=== PATIENT | female | born 1950 | race Hispanic/Latino ===

== ENCOUNTER 2020-11-25 08:49 | Outpatient (CLI) | payer MEDICARE ==
[2020-11-25 10:08] LABS: Blood Urea Nitrogen 43 mg/dL (7-17)
--- NOTE | 2020-11-25 12:07 | Cat Scan Report ---
CT angio abdomen pelvis INDICATION: MAIN. TECHNIQUE: All CT scans at this location are performed using CT dose reduction for ALARA by means of automated e xposure control. 3 plane MIP and 3-D reconstructions were produced. COMPARISON: None available. FINDINGS: Detail is obscured by considerable artifact from the thoracic spine hardware. There is mild ectasia of the infrarenal abdominal aorta, maximum diameter 2.4 cm. The abdominal aorta is moderately atherosclerotic. Celiac axis, SMA, renal arteries and LEI are patent. Common iliac art eries are mildly atherosclerotic but normal in caliber. Internal and external iliac arteries are crocker nt bilaterally, as are the common femoral arteries and proximal deep and superficial femoral arteries . IMPRESSION: 1. Moderate atherosclerosis, with mild focal ectasia (2.4 cm maximum diameter) of the infrarenal abdo bruce aorta. 2. Patent aortic branches. Signer Name: Lefty Murphy MD Signed: 11/25/2020 12:03 PM Workstation Name: [id number]
== END 2020-11-25 08:50 | disposition home or self-care (01) ==
LOC: CT 08:49
PROVIDERS: ATTEND Surgery Vascular Surgery
DX: I77.811 Abdominal aortic ectasia (principal); I70.0 Atherosclerosis of aorta
CPT/HCPCS: 36415; 74174; 82565; 84520; Q9967

== ENCOUNTER 2020-12-13 09:38 | Day surgery (SDC) | payer MEDICARE ==
[2020-12-13 10:51] LABS: Hematocrit 30.8 % (30.3-42.9); Hemoglobin 10.3 gm/dl (10.1-14.3); Mean Corpuscular HGB Conc 33 % (30-34); Mean Corpuscular Volume 96 fl (79-97); Platelet Count 411 K/mm3 (140-440); Red Blood Count 3.21 M/mm3 (3.65-5.03); Red Cell Distribution Width 15.5 % (13.2-15.2)
[2020-12-13 11:00] LABS: INR 0.97 (0.87-1.13)
[2020-12-13 11:01] LABS: Partial Thromboplastin Time 30.8 Sec. (24.2-36.6)
[2020-12-13 11:05] LABS: Calcium 8.8 mg/dL (8.4-10.2)
[2020-12-13 12:38] LABS: Platelet Estimate Consistent w Auto; RBC Morphology Normal; Total Cells Counted 100
[2020-12-13] MEDS: SODIUM CHLORIDE 0.9% 500 ML 500 ML IV SCH ×2 (12:42→14:00)
[2020-12-13] MEDS ORDERED: HEPARIN 10,000 UNITS/10 ML VIAL ONE (13:46)
[2020-12-13] MEDS ORDERED: HEPARIN/NS 5000 UNIT/500ML 1,000 ML IR ONE (13:46)
[2020-12-13] MEDS ORDERED: HEPARIN/NS 5000 UNIT/500ML 500 ML IR ONE (13:47)
[2020-12-13] MEDS ORDERED: NITROGLYCERIN SYRINGE 0 ML ONE (13:47)
[2020-12-13] MEDS ORDERED: VERAPAMIL 5 MG/2 ML INJ ONE (13:47)
[2020-12-13] MEDS ORDERED: LIDOCAINE (2%) 20 MG/1 ML VIAL 20 ML MDV INFILTRATI ONE (13:48)
[2020-12-13] MEDS: fentaNYL 100 MCG/2 ML INJ ONE ×2 (14:05→14:19)
[2020-12-13] MEDS: MIDAZOLAM 2 MG/2 ML INJ ONE ×2 (14:05→14:19)
--- NOTE | 2020-12-13 15:03 | Short Stay Summary ---
Short Stay Documentation Date of service: 12/13/20 Narrative H&P: See H&P - History H&P: obtained from office - Allergies and Medications Current Medications: Allergies morphine Allergy (Verified 12/13/20 10:22) Nausea Home Medications Medication Instructions Recorded Confirmed Last Taken Type ALPRAZolam [Xanax TAB] 1 mg FEEDTUBE TID 12/13/20 12/13/20 12/12/20 History 1 mg Acetaminophen [Tylenol] 325 mg FEEDTUBE PRN 12/13/20 12/13/20 12/12/20 History 325 mg Buspirone HCl [busPIRone] 5 mg FEEDTUBE BID 12/13/20 12/13/20 12/12/20 History 5 mg Cyclobenzaprine HCl [Flexeril 5 MG 5 mg FEEDTUBE TID 12/13/20 12/13/20 12/13/20 History TAB] 5 mg Duloxetine HCl 60 mg FEEDTUBE DAILY 12/13/20 12/13/20 12/12/20 History 60 mg Folic Acid [Folvite] 1 mg FEEDTUBE DAILY 12/13/20 12/13/20 12/12/20 History 1 mg Ondansetron (Nf) [Zofran TAB] 8 mg FEEDTUBE TID 12/13/20 12/13/20 12/12/20 History 8 mg Temazepam [Restoril] 30 mg FEEDTUBE DAILY 12/13/20 12/13/20 12/12/20 History 30 mg hydrOXYzine PAMOATE [Vistaril] 25 mg FEEDTUBE QID 12/13/20 12/13/20 12/12/20 History 25 mg metHOTREXate sodium [Methotrexate] 6 tab FEEDTUBE QWEEK 12/13/20 12/13/20 12/11/20 History 6 tab predniSONE [Deltasone] 10 mg FEEDTUBE QDAY 12/13/20 12/13/20 12/12/20 History 10 mg tiZANidine [Zanaflex 4mg TAB] 4 mg FEEDTUBE QID 12/13/20 12/13/20 12/12/20 History 4 mg traZODone [Desyrel] 100 mg FEEDTUBE HS 12/13/20 12/13/20 12/12/20 History 100 mg Active Medications Sodium Chloride (Nacl 0.9% 500 Ml) 500 mls @ 50 mls/hr IV DIRECT KELLY Last Admin: 12/13/20 14:00 Dose: 50 mls/hr Documented by: - Brief post op/procedure progress note Date of procedure: 12/13/20 Pre-op diagnosis: PVD with Right Lower Extremity Ulceration and Left Foot Rest Pain Post-op diagnosis: same Procedure: 1. Ultrasound-Guided Access Right Common Femoral Artery 2. Ultrasound-Guided Access Left Common Femoral Artery 3. Angioplasty and Stent of Right Common Iliac Artery With 8 x 59 Viabahn VBX Stent Graft 4. Angioplasty and Stent of Left Common Iliac Artery With 8 x 59 Viabahn VBX Stent Graft 5. Closure of Right Femoral Arteriotomy with Pro-Astor Closure Device 6. Closure of Left Femoral Arteriotomy with Pro-Astor Closure Device 7. Radiologic Supervision with Interpretation 8. Monitored Moderate Sedation (Total Anesthesia Time: 56 Minutes) Anesthesia: local, other (Monitored Moderate Sedation) Surgeon: DANNY GOYAL Estimated blood loss: minimal Pathology: none Condition: stable - Disposition Condition at discharge: Good Short Stay Discharge Plan Activity: other (No strenuous activity for 24 hours) Wound: remove dressing (48-hour), other (After removing dressing it is okay to shower and wash the wound with soap and water but do not soak in water for 2 weeks.) Follow up with: DANNY GOYAL MD [Staff Physician] - 14 Days Prescriptions: Metoprolol [Lopressor TAB] 25 mg PO BID #60 tablet Clopidogrel [Plavix] 75 mg PO QDAY #90 tablet cilostazoL [Pletal] 100 mg PO BID #60 tablet
--- NOTE | 2020-12-13 15:15 | Operative Report ---
Operative Report Operative Report: Date of Procedure: 12/13/2020 Pre-operative Diagnosis: Peripheral Vascular Disease with Right Lower Extremity Ulcerations and Left Foot Rest Pain Post-operative Diagnosis: Same Procedure(s): 1. Ultrasound-Guided Access Right Common Femoral Artery 2. Ultrasound-Guided Access Left Common Femoral Artery 3. Angioplasty and Stent of Right Common Iliac Artery With 8 x 59 Viabahn VBX Balloon Expandable Stent Graft 4. Angioplasty and Stent of Left Common Iliac Artery With 8 x 59 Viabahn VBX Balloon Expandable Stent Graft 5. Closure of Right Femoral Arteriotomy with Pro-[place] Closure Device 6. Closure of Left Femoral Arteriotomy with Pro-[place] Closure Device 7. Radiologic Supervision with Interpretation 8. Monitored Moderate Sedation (Total Anesthesia Time: 56 Minutes) Surgeon: Nathan Lopez M.D. Carpenter Refrigerator: German Anesthesia: Monitored Moderate Sedation Total Anesthesia Time: 56 Minutes EBL: Minimal Counts: Correct Complications: None Condition: Stable Specimen: None Indication: The patient is a 70-year-old female with a history of bilateral iliac artery stenosis and ulcerations on her right toes as well as rest pain in her left foot. She is in need of angioplasty and stent of the iliac arteries. She has been given the risk, benefits, and alternative procedures and consented to the procedure. Angiographic Findings: There is approximately 50% stenosis of the right common iliac artery and approximately 75% stenosis of the left common iliac artery. After intervention bilateral common iliac arteries were patent with less than 10% residual stenosis and brisk flow of contrast throughout. Description of Procedure: The patient was brought to the Shuttle Driver and laid in supine position. After she was adequately sedated bilateral groins were prepped and draped in normal sterile fashion. Ultrasound was used to identify the right common femoral artery and confirm patency. Once patency was confirmed the overlying skin and soft tissue was anesthetized with lidocaine. An 11 blade was used to make a small stab incision and then a curved hemostat was used with ultrasound guidance to bluntly dissect down to the anterior surface of the right common femoral artery. A 21-gauge micropuncture needle was used with ultrasound guidance into the right common femoral artery and a 0.018 micropuncture wire was advanced to the artery. The needle was removed and a micropuncture sheath was placed by Seldinger technique. The wire and inner dilator was removed and the 0.035 J-w jordyn was advanced into the artery. The micropuncture sheath was removed and a 5 Indonesian sheath was placed by Seldinger technique. Ultrasound was used to identify the left common femoral artery and confirm patency. Once patency was confirmed the overlying skin and soft tissue was anesthetized with lidocaine. An 11 blade was used to make a small stab incision and a curved hemostat was used to bluntly dissect down to the anterior surface of the left common femoral artery under ultrasound guidance. A 21-gauge micropuncture needle was used ultrasound guidance into the left common femoral artery and a 0.018 micropuncture wire was advanced to the artery. The needle was removed and a micropuncture sheath was placed by Seldinger technique. The entered dilator and wire were removed and a 0.035 J-wire was advanced to the artery. The micropuncture sheath was removed and a 5 Indonesian sheath was placed by standard technique. Hand injections were performed through each sheath and multiple obliquities demonstrating the areas of stenosis within the common iliac arteries as well as the origins of the hypogastric arteries. I then advanced a 0.035 Bentson wires through each sheath and into the aorta. Each 5 Indonesian sheath was then exchanged for a 7 Indonesian 25 cm sheath which was advanced into the aorta. I then systemically heparinized the patient with 3000 units of heparin IV. I advanced 8 x 59 Viabahn VBX Balloon Expandable Stent Grafts through each sheath respectively and placed them across the areas of stenosis ensuring that the hypogastrics were preserved. The stent grafts were then simultaneously deployed. The delivery balloons were removed and the dilator was replaced in the 7 Indonesian sheath on the right and the sheath was readvanced into the aorta. A final angiogram was performed demonstrating less than 10% residual stenosis in each common iliac artery with brisk flow of contrast throughout each lower extremity. At that point I used a Pro-glide closure devices to close each femoral arteriotomy after removing the sheaths. Sterile dressings were then applied to each groin and the patient was transported to the recovery area in stable condition.
[2020-12-13] MEDS ORDERED: CLOPIDOGREL 300 MG TAB PO SCH (15:30)
[2020-12-13 16:21] VITALS: BP 139/82
== END 2020-12-13 16:45 | disposition home or self-care (01) ==
LOC: CATHLABREC 09:38
PROVIDERS: ATTEND Surgery Vascular Surgery
DX: I70.213 Atherosclerosis of native arteries of extremities with intermittent claudication, bilateral legs (principal); F17.210 Nicotine dependence, cigarettes, uncomplicated; K21.9 Gastro-esophageal reflux disease without esophagitis; M19.90 Unspecified osteoarthritis, unspecified site; F32.9 Major depressive disorder, single episode, unspecified; F41.9 Anxiety disorder, unspecified; Z88.5 Allergy status to narcotic agent; Z79.899 Other long term (current) drug therapy; Z98.890 Other specified postprocedural states
CPT/HCPCS: 36415; 37221; 80048; 85007; 85025; 85610; 85730; 99156; 99157; C1769; C1874; C1894; J1644; J2250; J3010; J7040; Q9967